=== PATIENT | female | born 1980 | race Caucasian/White ===

== ENCOUNTER 2018-07-25 15:18 | Emergency (ER) | payer OTHER ==
[~2018-07-25] VITALS: Ht 162.6 cm; Wt 62.1 kg
[2018-07-25 15:35] VITALS: Ht 162.6 cm; Wt 62.1 kg
[2018-07-25 16:52] LABS: BASOPHIL % 0.8 % (0-2); PLATELET COUNT 388 x10^3mcL (130-400)
[2018-07-25 17:10] LABS: CALCIUM 9.2 mg/dL (8.5-10.1); CARBON DIOXIDE 27.8 mmol/L (21-32); CHLORIDE SERUM 104 mmol/L (98-107); GFR1 > 60 mL/min; GLUCOSE SERUM 84 mg/dL (74-106); POTASSIUM SERUM 3.3 mmol/L (3.5-5.1); SODIUM SERUM 138 mmol/L (136-145)
[2018-07-25 17:15] LABS: ALBUMIN 3.9 g/dL (3.4-5.0); ALKALINE PHOSPHATASE 73 U/L (46-116); ALT/SGPT 19 U/L (14-59); AST/SGOT 18 U/L (15-37); BILIRUBIN TOTAL 0.6 mg/dL (0.20-1.00); LIPASE 220 IU/L (73-393); TOTAL PROTEIN, SERUM 7.7 g/dL (6.4-8.2)
[2018-07-25 18:32] LABS: microscopic required? YES; urine erythrocyte NEGATIVE (NEGATIVE)
[2018-07-25 20:08] VITALS: BP 102/72
== END 2018-07-25 20:08 | disposition home or self-care (01) ==
LOC: ED 15:18
PROVIDERS: Emergency Medicine
DX: R10.31 Right lower quadrant pain (principal); R10.32 Left lower quadrant pain; R42 Dizziness and giddiness; F17.210 Nicotine dependence, cigarettes, uncomplicated; Z98.890 Other specified postprocedural states; Z71.6 Tobacco abuse counseling
CPT/HCPCS: 99406; J2270; J2405; J7030; Q9967

== ENCOUNTER 2019-07-25 22:02 | Emergency (ER) | payer OTHER ==
[~2019-07-25] VITALS: Ht 165.1 cm; Wt 62.6 kg
[2019-07-25 22:25] VITALS: BP 144/78; Ht 165.1 cm; Wt 62.6 kg
== END 2019-07-26 02:32 | disposition left against medical advice (07) ==
LOC: ED 22:02
DX: Z53.21 Procedure and treatment not carried out due to patient leaving prior to being seen by health care provider (principal)

== ENCOUNTER 2020-08-04 17:58 | Emergency (ER) | payer OTHER, SELFPAY ==
[~2020-08-04] VITALS: Ht 162.6 cm; Wt 63.5 kg
[2020-08-04 18:00] VITALS: Ht 162.6 cm; Wt 63.5 kg
[2020-08-04 20:39] VITALS: BP 129/83
== END 2020-08-04 20:40 | disposition home or self-care (01) ==
LOC: ED 17:58
DX: R50.9 Fever, unspecified (principal); J02.9 Acute pharyngitis, unspecified; R11.2 Nausea with vomiting, unspecified; F15.10 Other stimulant abuse, uncomplicated; F12.10 Cannabis abuse, uncomplicated; F17.210 Nicotine dependence, cigarettes, uncomplicated; Z20.828 Contact with and (suspected) exposure to other viral communicable diseases; Z98.890 Other specified postprocedural states
CPT/HCPCS: U0003